=== PATIENT | male | born 1955 | race Caucasian/White ===

== ENCOUNTER 2018-10-22 15:50 | Observation (INO) ==
--- NOTE | 2018-10-22 16:15 | XRay Report ---
SINGLE VIEW CHEST CLINICAL HISTORY: Atypical chest pain. FINDINGS: An AP, portable, upright chest radiograph is obtained. No prior studies are available for c omparison at the time of dictation. The examination is degraded by portable technique, apical lordoti c positioning, and patient rotation. The heart is enlarged. The pulmonary vasculature is noncongeste d. There is mild bibasilar scarring/atelectasis. The lungs and pleural spaces are otherwise clear. No pneumothorax is seen. The skeletal structures are osteopenic. The bony thorax is grossly intact. Deg enerative change is noted throughout the thoracic spine. IMPRESSION: Cardiomegaly with no acute cardiopulmonary abnormality. Electronically signed by: Checo Zavala M.D. 10/22/2018 4:13 PM
[2018-10-22 16:37] LABS: Basophils # (auto) 0.03 K/uL (0-0.2); Basophils % (auto) 0.6 %; Eosinophils % (auto) 1.9 %; Hematocrit (blood only) 38.3 % (42-52); Hemoglobin 13.6 g/dL (14.0-18.0); Immature Granulocytes # (auto) 0.01 K/uL (0.00-0.02); Immature Granulocytes % (auto) 0.2 %; Lymphocytes # (auto) 1.27 K/uL (1.2-3.4); Lymphocytes % (auto) 24.5 %; Mean Corpuscular Hgb Conc 35.5 g/dL (32-36); Mean Corpuscular Volume 90.5 fL (80-100); Mean Platelet Volume 10.1 fL (7.4-10.4); Monocytes # (auto) 0.53 K/uL (0.11-0.59); Monocytes % (auto) 10.2 %; Neutrophils # (auto) 3.24 K/uL (1.4-6.5); Neutrophils % (auto) 62.6 %; Platelet Count 207 K/uL (130-400); RDW Coefficient of Variation 12.4 % (11.5-14.5); RDW Standard Deviation 41.3 fL (36.4-46.3); Red Blood Count 4.23 M/uL (4.7-6.1); White Blood Count 5.18 K/uL (4.8-10.8)
[2018-10-22 16:58] LABS: Albumin Level 3.6 gm/dl (3.4-5.0); BUN Creatinine Ratio 18.8 (10-20); Calcium 9.5 mg/dl (8.5-10.1); Creatinine Clr Calc Pharmacy 52.1 ml/min; Est GFR (African American) 57.7; Est GFR (Non-African American) 49.8; Magnesium 2.3 mg/dl (1.8-2.4); Potassium 3.8 mmol/L (3.5-5.1)
[2018-10-22 17:12] LABS: Albumin Globulin Ratio 1.2 (0.9-2); Bilirubin,Total 0.3 mg/dl (0.2-1); Globulin 3.1 gm/dl (2.5-4.0); Phosphorus 3.3 mg/dl (2.5-4.9); Total Protein 6.7 gm/dl (6.4-8.2); Troponin I 0.127 ng/ml (0-0.045)
[2018-10-22] MEDS ORDERED: SODIUM CHLORIDE 0.9% 500 ML IV ONE (17:28)
[2018-10-22 17:31] LABS: Appearance Urine Clear (Clear); Bilirubin Urine Negative (Negative); Blood Urine Negative (Negative); Color Urine Dark Yellow; Glucose Urine UA Negative (Negative); Ketones Urine Trace (Negative); Leukocyte Esterase Urine Negative (Negative); Nitrite Urine Negative (Negative); Protein Urine Negative (Negative); Specific Gravity Urine 1.026 (1.000-1.030); Urobilinogen Urine Negative (Negative); pH Urine 5.5 (4.5-7.5)
--- NOTE | 2018-10-22 17:31 | Emergency Department Note ---
Entered by Hannah Ovalle acting as a scribe for Siva Hernandez MD History of Present Illness General Chief complaint: Hypertension Stated complaint: ELEVATED BP 220/ Time Seen by Provider: 10/22/18 15:57 Source: patient Limitations: no limitations History of Present Illness Provider complaint: Hypertension Onset (ago): unknown Location: left and right Associated symptoms: + denies other symptoms (-congestion, -diarrhea, -urinary symptoms); no chest pain, no cough, no fever/chills, no nausea/vomiting and no shortness of breath The patient is a 63 year old male who presents to the Emergency Room with complaints of hypertension. The patient states that he was at his provider prior to arrival for a regular check-up for his nocturnal seizure disorder and states that his physician felt the patient needed to come to the ED for his high blood pressure. The patient denies having any recent seizure episodes and states that he takes lamotrigine for his seizure disorder. The patient denies a history of hypertension and states that he does not take blood pressure medication. The patient states that his blood pressure usually runs in the 140's. The patient states that he feels fine. The patient denies any chest pain, shortness of breath, nausea, vomiting, cough, congestion, urinary problems, or diarrhea. The patient denies any chest pain or shortness of breath with exertion. The patient states that the physician he saw wanted the patient to get a complete metabolic panel and blood count. 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 and A total of 10 systems reviewed and were otherwise negative Physical Exam Vital Signs Vital Signs - 24 hr 10/22/18 15:54 10/22/18 16:07 10/22/18 16:22 Temperature 36.8 C Temperature Source Oral Sepsis Recent Fever Within 48 Hours No Sepsis New/Unexplained Change in Mental Status No Sepsis Action Taken by Nursing No Action Required Pulse Rate 76 71 70 Pulse Rate from SpO2 Sensor 70 Pulse Rhythm Regular Pulse Strength Normal Respiratory Rate 18 21 15 Respiratory Effort / Characteristics Non-Labored Spontaneous Respiratory Depth Normal Respiratory Pattern Regular Blood Pressure 253/102 H 226/91 H Blood Pressure Mean 152 136 Blood Pressure Position Sitting Pulse Oximetry 96 94 Oxygen Delivery Method Room Air 10/22/18 16:30 10/22/18 16:31 10/22/18 16:32 Temperature Temperature Source Sepsis Recent Fever Within 48 Hours Sepsis New/Unexplained Change in Mental Status Sepsis Action Taken by Nursing Pulse Rate 68 69 68 Pulse Rate from SpO2 Sensor 68 69 68 Pulse Rhythm Pulse Strength Respiratory Rate 17 14 19 Respiratory Effort / Characteristics Respiratory Depth Respiratory Pattern Blood Pressure 211/91 H Blood Pressure Mean 131 Blood Pressure Position Pulse Oximetry 94 95 Oxygen Delivery Method 10/22/18 16:44 10/22/18 16:46 10/22/18 17:00 Temperature Temperature Source Sepsis Recent Fever Within 48 Hours Sepsis New/Unexplained Change in Mental Status Sepsis Action Taken by Nursing Pulse Rate 68 67 Pulse Rate from SpO2 Sensor 69 68 Pulse Rhythm Pulse Strength Respiratory Rate 12 14 Respiratory Effort / Characteristics Respiratory Depth Respiratory Pattern Blood Pressure 205/101 H 215/94 H Blood Pressure Mean 135 134 Blood Pressure Position Pulse Oximetry 96 93 95 Oxygen Delivery Method Room Air 10/22/18 17:18 10/22/18 17:30 10/22/18 17:31 Temperature Temperature Source Sepsis Recent Fever Within 48 Hours Sepsis New/Unexplained Change in Mental Status Sepsis Action Taken by Nursing Pulse Rate 73 71 70 Pulse Rate from SpO2 Sensor Pulse Rhythm Pulse Strength Respiratory Rate 23 15 10 L Respiratory Effort / Characteristics Respiratory Depth Respiratory Pattern Blood Pressure 232/100 H 220/100 H Blood Pressure Mean 144 140 Blood Pressure Position Pulse Oximetry Oxygen Delivery Method 10/22/18 17:32 10/22/18 17:46 10/22/18 18:00 Temperature Temperature Source Sepsis Recent Fever Within 48 Hours Sepsis New/Unexplained Change in Mental Status Sepsis Action Taken by Nursing Pulse Rate 70 68 68 Pulse Rate from SpO2 Sensor Pulse Rhythm Pulse Strength Respiratory Rate 19 16 17 Respiratory Effort / Characteristics Respiratory Depth Respiratory Pattern Blood Pressure 218/97 H Blood Pressure Mean 137 Blood Pressure Position Pulse Oximetry Oxygen Delivery Method 10/22/18 18:01 10/22/18 18:16 10/22/18 18:17 Temperature Temperature Source Sepsis Recent Fever Within 48 Hours Sepsis New/Unexplained Change in Mental Status Sepsis Action Taken by Nursing Pulse Rate 70 67 66 Pulse Rate from SpO2 Sensor Pulse Rhythm Pulse Strength Respiratory Rate 17 12 14 Respiratory Effort / Characteristics Respiratory Depth Respiratory Pattern Blood Pressure 219/109 H 228/100 H Blood Pressure Mean 145 142 Blood Pressure Position Pulse Oximetry Oxygen Delivery Method 10/22/18 18:31 10/22/18 18:32 Temperature Temperature Source Sepsis Recent Fever Within 48 Hours Sepsis New/Unexplained Change in Mental Status Sepsis Action Taken by Nursing Pulse Rate 63 64 Pulse Rate from SpO2 Sensor Pulse Rhythm Pulse Strength Respiratory Rate 11 L 12 Respiratory Effort / Characteristics Respiratory Depth Respiratory Pattern Blood Pressure 225/106 H Blood Pressure Mean 145 Blood Pressure Position Pulse Oximetry Oxygen Delivery Method GENERAL: Awake, alert, well appearing, no distress. HENT: Normocephalic, atraumatic. TM's normal. Mucous membranes are dry. EYES: PERRL. EOMI. Normal conjunctiva. Sclera non-icteric. NECK: Supple. No nuchal rigidity. FROM. No JVD or bruit. RESPIRATORY: CTAB CARDIAC: RRR. No murmur. ABDOMEN: Soft, non distended. No tenderness to palpation. No rebound or guarding. No masses. RECTAL: Deferred. MUSCULOSKELETAL: Unremarkable. No edema. No discoloration. Gross motor s trength symmetric. NEURO: Normal sensorium. No sensory or motor deficits noted. Intact [id number]. 5/5 strength and SILT x4 extremities. SKIN: No rash or jaundice noted. LYMPH: No adenopathy. Course 1559: The patient was evaluated in room A10, and a complete history and physical examination were performed. 1728: I checked on the patient. The patient was updated on their imaging and lab results. The patient states that he still has no symptoms. 1735: I discussed the patient's case with JENNIFER Owenist who states that she will evaluate the patient for further hospitalization. Consultations Consultation #1: JENNIFER Owen Hospitalist Time: 17:35 Administered Medications Amlodipine Besylate (Norvasc) 5 mg PO QAM [facility] Stop: 11/21/18 19:48 Last Admin: 10/22/18 20:26 Dose: 5 mg Documented by: [id number] Aspirin (Ecotrin Ectab) 81 mg PO QAM [facility] Stop: 11/21/18 19:48 Last Admin: 10/22/18 20:25 Dose: 81 mg Documented by: [id number] Heparin Sodium (Porcine) (Heparin Sodium (Porcine)) 5,000 units SQ Q8 [facility] Stop: 11/21/18 21:59 Last Admin: 10/22/18 22:47 Dose: 5,000 units Documented by: [id number] Cosigned by: [id number] Sodium Chloride (Nss 1000ml) 1,000 mls @ 100 mls/hr IV .Q10H AMY Stop: 11/21/18 19:48 Last Admin: 10/22/18 20:29 Dose: 100 mls/hr Documented by: [id number] Insulin Aspart (Novolog Flexpen) 0 units SC ACHS [facility] Stop: 11/21/18 20:59 Last Admin: 10/22/18 21:15 Dose: Not Given Documented by: [id number] Cosigned by: [id number] Labetalol HCl (Normodyne) 10 mg IV Q4H PRN PRN Reason: Hypertension (SBP > 180) Stop: 11/21/18 22:11 Last Admin: 10/22/18 22:48 Dose: 10 mg Documented by: [id number] Cosigned by: [id number] Lamotrigine (Lamictal) 150 mg PO BID [facility] Stop: 11/21/18 20:59 Last Admin: 10/22/18 20:26 Dose: 150 mg Documented by: [id number] Metoprolol Tartrate (Lopressor) 12.5 mg PO BID [facility] Stop: 11/21/18 20:59 Last Admin: 10/22/18 21:18 Dose: 12.5 mg Documented by: [id number] Discontinued Medications Sodium Chloride (Nss) 500 mls @ 999 mls/hr IV .Q31M ONE Stop: 10/22/18 17:58 Last Infusion: 10/22/18 18:04 Dose: 0 mls/hr Documented by: [id number] Admin: 10/22/18 17:31 Dose: 999 mls/hr Documented by: [id number] Lisinopril (Zestril) 5 mg PO NOW ONE Stop: 10/22/18 20:16 Last Admin: 10/22/18 20:26 Dose: 5 mg Documented by: [id number] Metoprolol Tartrate (Lopressor) 5 mg IV NOW STA Stop: 10/22/18 19:50 Last Admin: 10/22/18 20:32 Dose: 5 mg Documented by: [id number] Medical Decision Making Differential Diagnosis Differential diagnosis: Etiologies such as benign hypertension, hypertensive emergency, cardiovascular pathology, intracranial process, toxic ingestion, withdrawal syndrome, electrolyte abnormality, renal disease, end organ damage, as well as others were entertained. Medical Records Attestation: I reviewed the patient's medical records. Home Medications Current Medication List: was personally reviewed by me Laboratory Data Attestation: I reviewed the patient's lab results. Result diagrams: 10/22/18 16:22 10/22/18 16:22 Lab Results 10/22/18 10/22/18 10/22/18 Range/Units 16:22 16:22 16:23 WBC 5.18 (4.8-10.8) K/uL RBC 4.23 L (4.7-6.1) M/uL Hgb 13.6 L (14.0-18.0) g/dL Hct 38.3 L (42-52) % MCV 90.5 (80-100) fL MCH 32.2 (25-34) pg MCHC 35.5 (32-36) g/dL RDW Std Deviation 41.3 (36.4-46.3) fL RDW Coeff of Lul[place] 12.4 (11.5-14.5) % Plt Count 207 (130-400) K/uL MPV 10.1 (7.4-10.4) fL Immature Gran % (Auto) 0.2 % Neut % (Auto) 62.6 % Lymph % (Auto) 24.5 % [place] % (Auto) 10.2 % Eos % (Auto) 1.9 % Baso % (Auto) 0.6 % Immature Gran # (Auto) 0.01 (0.00-0.02) K/uL Neut # (Auto) 3.24 (1.4-6.5) K/uL Lymph # (Auto) 1.27 (1.2-3.4) K/uL [place] # (Auto) 0.53 (0.11-0.59) K/uL Eos # (Auto) 0.10 (0-0.5) K/uL Baso # (Auto) 0.03 (0-0.2) K/uL PT (9.0-12.0) Seconds INR (0.9-1.1) Sodium 145 (136-145) mmol/L Potassium 3.8 (3.5-5.1) mmol/L Chloride 110 H (98-107) mmol/L Carbon Dioxide 27 (21-32) mmol/L Anion Gap 8.0 (3-11) BUN 27 H (7-18) mg/dl Creatinine 1.46 H (0.6-1.4) mg/dl Est Cr Clr Drug Dosing 52.1 ml/min Est GFR ( Amer) 57.7 Est GFR (Non-Af Amer) 49.8 BUN/Creatinine Ratio 18.8 (10-20) Glucose 229 H (70-99) mg/dl Calcium 9.5 (8.5-10.1) mg/dl Phosphorus 3.3 (2.5-4.9) mg/dl Magnesium 2.3 (1.8-2.4) mg/dl Total Bilirubin 0.3 (0.2-1) mg/dl AST 27 (15-37) U/L ALT 39 (12-78) U/L Alkaline Phosphatase 78 (45-117) U/L Troponin I 0.127 H* (0-0.045) ng/ml Total Protein 6.7 (6.4-8.2) gm/dl Albumin 3.6 (3.4-5.0) gm/dl Globulin 3.1 (2.5-4.0) gm/dl Albumin/Globulin Ratio 1.2 (0.9-2) Lipase 90 (73-393) U/L TSH 0.507 (0.300-4.500) uIu/ml Random Cortisol 12.87 mcg/dl Specimen Hemolysis Urine Color Urine Appearance (Clear) Urine pH (4.5-7.5) Ur Specific [place] (1.000-1.030) Urine Protein (Negative) Urine Glucose (UA) (Negative) Urine Ketones (Negative) Urine Blood (Negative) Urine Nitrite (Negative) Urine Bilirubin (Negative) Urine Urobilinogen (Negative) Ur Leukocyte Esterase (Negative) 10/22/18 10/22/18 Range/Units 16:23 17:10 WBC (4.8-10.8) K/uL RBC (4.7-6.1) M/uL Hgb (14.0-18.0) g/dL Hct (42-52) % MCV (80-100) fL MCH (25-34) pg MCHC (32-36) g/dL RDW Std Deviation (36.4-46.3) fL RDW Coeff of Lulú (11.5-14.5) % Plt Count (130-400) K/uL MPV (7.4-10.4) fL Immature Gran % (Auto) % Neut % (Auto) % Lymph % (Auto) % [place] % (Auto) % Eos % (Auto) % Baso % (Auto) % Immature Gran # (Auto) (0.00-0.02) K/uL Neut # (Auto) (1.4-6.5) K/uL Lymph # (Auto) (1.2-3.4) K/uL [place] # (Auto) (0.11-0.59) K/uL Eos # (Auto) (0-0.5) K/uL Baso # (Auto) (0-0.2) K/uL PT 10.4 (9.0-12.0) Seconds INR 1.0 (0.9-1.1) Sodium (136-145) mmol/L Potassium (3.5-5.1) mmol/L Chloride (98-107) mmol/L Carbon Dioxide (21-32) mmol/L Anion Gap (3-11) BUN (7-18) mg/dl Creatinine (0.6-1.4) mg/dl Est Cr Clr Drug Dosing ml/min Est GFR ( Amer) Est GFR (Non-Af Amer) BUN/Creatinine Ratio (10-20) Glucose (70-99) mg/dl Calcium (8.5-10.1) mg/dl Phosphorus (2.5-4.9) mg/dl Magnesium (1.8-2.4) mg/dl Total Bilirubin (0.2-1) mg/dl AST (15-37) U/L ALT (12-78) U/L Alkaline Phosphatase (45-117) U/L Troponin I (0-0.045) ng/ml Total Protein (6.4-8.2) gm/dl Albumin (3.4-5.0) gm/dl Globulin (2.5-4.0) gm/dl Albumin/Globulin Ratio (0.9-2) Lipase (73-393) U/L TSH (0.300-4.500) uIu/ml Random Cortisol mcg/dl Specimen Hemolysis Urine Color Dark Yellow Urine Appearance Clear (Clear) Urine pH 5.5 (4.5-7.5) Ur Specific [place] 1.026 (1.000-1.030) Urine Protein Negative (Negative) Urine Glucose (UA) Negative (Negative) Urine Ketones Trace H (Negative) Urine Blood Negative (Negative) Urine Nitrite Negative (Negative) Urine Bilirubin Negative (Negative) Urine Urobilinogen Negative (Negative) Ur Leukocyte Esterase Negative (Negative) Imaging Data Radiologist's Impression: Radiology results as stated below per my review and the radiologist's interpretation: SINGLE VIEW CHEST CLINICAL HISTORY: Atypical chest pain. FINDINGS: An AP, portable, upright chest radiograph is obtained. No prior studies are available for comparison at the time of dictation. The examination is degraded by portable technique, apical lordotic positioning, and patient rotation. The heart is enlarged. The pulmonary vasculature is noncongested. There is mild bibasilar scarring/atelectasis. The lungs and pleural spaces are otherwise clear. No pneumothorax is seen. The skeletal structures are osteopenic. The bony thorax is grossly intact. Degenerative change is noted throughout the thoracic spine. IMPRESSION: Cardiomegaly with no acute cardiopulmonary abnormality. Electronically signed by: Checo Zavala M.D. 10/22/2018 4:13 PM ECG Data Attestation: I personally reviewed and interpreted this ECG as follows: Indication: other (+Hypertension) Rate (beats per minute): 76 Rhythm: sinus rhythm Findings: + other (+LVH, +QRS widening ) and + T-wave inversion (+Inferior, +Lateral) Blood Pressure Blood Pressure Findings: Elevated blood pressure Blood Pressure Disposition: further management by hospitalist MDM Narrative The patient is a pleasant 63-year-old gentleman with a past medical history of seizure disorder on Lamictal who presents emergency department for evaluation of asymptomatic hypertension after he was at his annual he scheduled neurology visit and was found to be profoundly hypertensive per hpi. On arrival patient is well-appearing in no acute distress, afebrile with blood pressure initially 250/110s vital signs otherwise stable. She denied any current symptoms or any symptoms otherwise including denying any dyspnea or chest pain on exertion. Additionally denies any episodes in the past several months where he experienced any chest pain, nausea or vomiting. EKG demonstrates LVH with QRS widening as well as T wave inversions inferior and laterally, with no prior EKGs for comparison. Chest x-ray demonstrates cardiomegaly but without acute process otherwise. WBC and platelets within normal limits. H/H 13.6/38.3 without prior values for comparison. Glucose 200s and chemistry without acidosis. Creatinine is 1.46 approximately prior value in the [facility] system where he was 1.3 on 01/21/2015. Troponin is 0.127 without prior values for comparison. Given the patient denies any current or prior symptoms troponin elevation less likely to be related to ACS and most likely related to prolonged malignant hypertension. Thus reasonable to admit the patient for further cardiac evaluation and further blood pressure control. Blood pressure initially improved to 200s/90s fluid hydration alone. Will provide additional hydration and reassess. Case was discussed with Ruby Champion, [facility] PAC, who evaluate the patient for admission. Impression & Plan Hypertensive urgency, Elevated troponin Discharge Plan Visit Data *Final* Discharge Date/Time: 10/22/18 19:25 Chief Complaint: Hypertension Stated Complaint: ELEVATED BP 220/ ED Provider: Siva Hernandez Discharge Problem: Hypertensive urgency, Elevated troponin Patient Disposition: Admitted As Inpatient Discharge Instructions Interventions: ED Discharge Assessment Last Done: 10/22/18 19:25 The scribe's documentation has been prepared under my direction and personally reviewed by me in its entirety. I confirm that the note above accurately reflects all work, treatment, procedures, and medical decision making performed by me.
--- NOTE | 2018-10-22 18:50 | History & Physical Report ---
Date of Service October 22, 2018 Assessment & Plan (1) Hypertensive urgency: (2) Elevated troponin: (3) New onset type 2 diabetes mellitus: (4) CKD (chronic kidney disease): (5) Seizure: Cardiology, Renal, and Neuro evals, IVFs, Renal US, TSH, T4, Cortisol level, SSI, adult educator, Lamictal level, Fran, EKG, MARIANA-I, BBlocker, Norvasc, Observation ROS-No Headache, No Visual Changes, No Nausea, No Vomiting, No Fever, No Chills, No Neck Pain or Stiffness, No Chest Pain, No Palpitations, No SOB, No NICHOLS, No Cough, No Sputum, No Wheezing, No Abdominal Pain, No Diarrhea, No Hematemesis, No Hemoptysis, No Unexpected Weight Loss, No Flank pain, No Melena, No Hem atochezia, No Frequency, No Urgency, No Burning, No Hematuria, No Rashes, No Diaphoresis. Appetite is Normal Physical Exam Gen-AAO x 3, NAD, Afebrile Head-NCAT, EOMI, PERRLA, Anicteric Sclera, No Posterior Pharyngeal Erythema Neck-Supple, No JVD, No Thyromegaly, No Masses, No LAD, No Bruits Lungs-Clear to Auscultation Bilaterally, No Rales, No Rhonchi, No Wheezing, No Crepitus Chest-No S4, +S1, +S2, No S3, No Murmurs, No Rubs, No Gallops, No Ectopy Abdomen-Soft, Bowel Sounds Present, Non Tender, Non Distended, No Hepatomegaly, No Splenomegaly, No Palpable Masses, No Rebound, No Rigidity, No Guarding Musculoskeletal-Full Range of Motion Bilaterally, No CVAT Extremities-No Cyanosis, No Clubbing, No Edema Nuero-Cranial Nerves II-XII grossly intact, Motor WNL, DTRs WNL, Strength WNL, Non Focal Psych-Normal Mood History of Present Illness Patient sent over by Neurology sec to BP of 253/102 and here in ER 218/97. He has zero symptoms and was seeing Dr Clarke for seizure follow up. 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 FH-Mother of COPD, F AMI, Siblings and children all Healthy Primary Care Provider: NO PCP Allergies Allergy/AdvReac Type Severity Reaction Status Date / Time No Known Allergies Allergy Unverified 10/22/18 15:54 Home Medications Home Medications Medication Instructions Recorded Confirmed Type lamotrigine 150 mg PO BID 10/22/18 10/22/18 History multivitamin 1 tab PO DAILY 10/22/18 10/22/18 History Past Med/Surg History Medical History No significant active problems No significant family history No significant past surgical history Nocturnal seizures Social History Preferred Language: [place] Feels Safe at Home: Yes Smoking Status: Never smoker Results & Data Vital Signs (Past 12 Hours) Vital Signs Temp Pulse Resp BP Pulse Ox 10/22/18 18:31 63 11 L 225/106 H 10/22/18 18:17 66 14 10/22/18 18:16 67 12 228/100 H 10/22/18 18:01 70 17 219/109 H 10/22/18 18:00 68 17 10/22/18 17:46 68 16 218/97 H 10/22/18 17:32 70 19 10/22/18 17:31 70 10 L 220/100 H 10/22/18 17:30 71 15 10/22/18 17:18 73 23 232/100 H 10/22/18 17:00 67 14 215/94 H 95 10/22/18 16:46 68 12 205/101 H 93 10/22/18 16:44 96 10/22/18 16:32 68 19 95 10/22/18 16:31 69 14 211/91 H 10/22/18 16:30 68 17 94 10/22/18 16:22 70 15 226/91 H 94 10/22/18 16:07 71 21 10/22/18 15:54 36.8 C 76 18 253/102 H 96 Allergies No Known Allergies Allergy (Unverified 10/22/18 15:54) Height/Weight/Isolation Height 5 ft 10 in Weight 84.6 kg CBC 10/22/18 10/22/18 10/22/18 16:22 16:22 17:10 WBC 5.18 RBC 4.23 L Hgb 13.6 L Hct 38.3 L MCV 90.5 MCH 32.2 MCHC 35.5 RDW Std Deviation 41.3 RDW Coeff of Lulú 12.4 Plt Count 207 MPV 10.1 Immature Gran % (Auto) 0.2 Neut % (Auto) 62.6 Lymph % (Auto) 24.5 [place] % (Auto) 10.2 Eos % (Auto) 1.9 Baso % (Auto) 0.6 Immature Gran # (Auto) 0.01 Neut # (Auto) 3.24 Lymph # (Auto) 1.27 [place] # (Auto) 0.53 Eos # (Auto) 0.10 Baso # (Auto) 0.03 Sodium 145 Potassium 3.8 Chloride 110 H Carbon Dioxide 27 Anion Gap 8.0 BUN 27 H Creatinine 1.46 H Est Cr Clr Drug Dosing 52.1 Est GFR ( Amer) 57.7 Est GFR (Non-Af Amer) 49.8 BUN/Creatinine Ratio 18.8 Glucose 229 H Calcium 9.5 Phosphorus 3.3 Magnesium 2.3 Total Bilirubin 0.3 AST 27 ALT 39 Alkaline Phosphatase 78 Troponin I 0.127 H* Total Protein 6.7 Albumin 3.6 Globulin 3.1 Albumin/Globulin Ratio 1.2 Lipase 90 TSH 0.507 Specimen Hemolysis Urine Color Dark Yellow Urine Appearance Clear Urine pH 5.5 Ur Specific [place] 1.026 Urine Protein Negative Urine Glucose (UA) Negative Urine Ketones Trace H Urine Blood Negative Urine Nitrite Negative Urine Bilirubin Negative Urine Urobilinogen Negative Ur Leukocyte Esterase Negative Chemistry 10/22/18 16:22 Sodium 145 Potassium 3.8 Chloride 110 H Carbon Dioxide 27 Anion Gap 8.0 BUN 27 H Creatinine 1.46 H Glucose 229 H Urinalysis 10/22/18 17:10 Urine Color Dark Yellow Urine Appearance Clear Urine pH 5.5 Ur Specific [place] 1.026 Urine Protein Negative Urine Glucose (UA) Negative Urine Ketones Trace H Urine Blood Negative Urine Nitrite Negative Urine Bilirubin Negative Code Status & VTE Plan Code Status Full
[2018-10-22] MEDS ORDERED: AMLODIPINE BESYLATE 5 MG TAB PO SCH (19:49)
[2018-10-22] MEDS ORDERED: GLUCOSE 40% GEL 15 GM TUBE PO PRN (19:49)
[2018-10-22] MEDS ORDERED: DEXTROSE 50% 50 ML SYRINGE IV PRN (19:49)
[2018-10-22] MEDS ORDERED: GLUCAGON FOR INJ 1 MG VIAL SQ PRN (19:49)
[2018-10-22] MEDS ORDERED: CARBOHYDRATES FOR HYPOGLYCEMIA PO PRN (19:49)
[2018-10-22] MEDS ORDERED: ALUMINUM/MAGNESIUM SUSP 30 ML UDC PO PRN (19:49)
[2018-10-22] MEDS ORDERED: ACETAMINOPHEN 325 MG TAB PO PRN (19:49)
[2018-10-22] MEDS ORDERED: METOPROLOL TARTRATE 1 MG/ML VIAL IV STA (19:49)
[2018-10-22] MEDS ORDERED: GLUCOSE 10 TABS/TUBE PO PRN (19:49)
[2018-10-22] MEDS ORDERED: POLYETHYLENE (MIRALAX) 17 GM PACK PO PRN (19:49)
[2018-10-22] MEDS ORDERED: PHARMACY GLYCEMIC MGMT CONSULT PRN (20:05)
[2018-10-22] MEDS ORDERED: LISINOPRIL 5 MG TAB PO ONE (20:15)
[2018-10-22] MEDS: ASPIRIN 81 MG ECTAB PO SCH (20:25)
[2018-10-22] MEDS: lamoTRIgine 100 MG TAB PO SCH (20:26)
[2018-10-22] MEDS: SODIUM CHLORIDE 0.9% 1000ML 1,000 ML IV SCH (20:29)
[2018-10-22] MEDS ORDERED: METOPROLOL TARTRATE 25 MG TAB PO SCH (21:00)
[2018-10-22] MEDS: INSULIN ASPART 100 UNITS/ML 3 ML PEN SC SCH (21:15)
[2018-10-22 21:25] LABS: Prothrombin Time 10.4 Seconds (9.0-12.0)
[2018-10-22] MEDS: HEPARIN SOD 5,000 UNIT/0.5 ML VIAL SQ SCH (22:47)
[2018-10-22] MEDS: LABETALOL HCL IV 5 MG/ML 20ML IV PRN (22:48)
[2018-10-23] MEDS ORDERED: INSULIN ASPART 100 UNITS/ML 3 ML PEN SC SCH
[2018-10-23] MEDS: NITROGLYCERIN 2% OINTMENT 30GM TUBE EXT SCH ×2 (00:25→06:14)
[2018-10-23] MEDS ORDERED: HydrALAZINE HCL 20 MG/ML VIAL IV ONE (01:39)
[2018-10-23] MEDS: SODIUM CHLORIDE 0.9% 1000ML 1,000 ML IV SCH ×2 (06:13→13:18)
[2018-10-23] MEDS: HEPARIN SOD 5,000 UNIT/0.5 ML VIAL SQ SCH ×2 (06:16→13:18)
[2018-10-23] MEDS: LABETALOL HCL IV 5 MG/ML 20ML IV PRN (06:16)
--- NOTE | 2018-10-23 06:58 | Hospitalist Progress Note ---
Date of Service October 23, 2018 Assessment & Plan (1) Hypertensive urgency: (2) Elevated troponin: (3) New onset type 2 diabetes mellitus: (4) CKD (chronic kidney disease): (5) Seizure: Cardiology, Renal, and Neuro evals, IVFs, Renal US, TSH is normal, T4, Cortisol level normal, SSI, in service educator, Lamictal level, Fran, EKG, HCTZ added to Lisinopril (), BBlocker increased, Norvasc increased, Still Observation, Patient didn't get this BP overnight, will be happy c a SBP 150-160 for now, DC later today and f/u c Renal, Neuro, Cards Labs reviewed, US neg for ROLO ROS-No Headache, No Visual Changes, No Nausea, No Vomiting, No Fever, No Chills, No Neck Pain or Stiffness, No Chest Pain, No Palpitations, No SOB, No NICHOLS, No Cough, No Sputum, No Wheezing, No Abdominal Pain, No Diarrhea, No Hematemesis, No Hemoptysis, No Unexpected Weight Loss, No Flank pain, No Melena, No Hematochezia, No Frequency, No Urgency, No Burning, No Hematuria, No Rashes, No Diaphoresis. Appetite is Normal Physical Exam Gen-AAO x 3, NAD, Afebrile Head-NCAT, EOMI, PERRLA, Anicteric Sclera, No Posterior Pharyngeal Erythema Neck-Supple, No JVD, No Thyromegaly, No Masses, No LAD, No Bruits Lungs-Clear to Auscultation Bilaterally, No Rales, No Rhonchi, No Wheezing, No Crepitus Chest-No S4, +S1, +S2, No S3, No Murmurs, No Rubs, No Gallops, No Ectopy Abdomen-Soft, Bowel Sounds Present, Non Tender, Non Distended, No Hepatomegaly, No Splenomegaly, No Palpable Masses, No Rebound, No Rigidity, No Guarding Musculoskeletal-Full Range of Motion Bilaterally, No CVAT Extremities-No Cyanosis, No Clubbing, No Edema Nuero-Cranial Nerves II-XII grossly intact, Motor WNL, DTRs WNL, Strength WNL, Non Focal Psych-Normal Mood Results & Data Vital Signs (Past 12 Hours) Vital Signs Temp Pulse Pulse Resp BP BP BP 10/23/18 06:24 60 182/97 H 10/23/18 03:14 36.5 C 58 L 18 162/93 H 10/23/18 01:32 206/108 H 10/22/18 23:43 36.7 C 61 17 216/110 H 10/22/18 22:10 64 213/110 H 10/22/18 21:16 219/112 H 10/22/18 20:32 65 10/22/18 19:53 36.5 C 67 19 237/108 H 10/22/18 19:16 65 12 229/107 H 10/22/18 19:01 65 12 235/110 H 10/22/18 19:00 64 15 Pulse Ox 10/23/18 06:24 10/23/18 03:14 97 10/23/18 01:32 10/22/18 23:43 97 10/22/18 22:10 10/22/18 21:16 10/22/18 20:32 10/22/18 19:53 97 10/22/18 19:16 10/22/18 19:01 10/22/18 19:00
[2018-10-23 07:14] LABS: Hematocrit (blood only) 37.2 % (42-52); Hemoglobin 12.7 g/dL (14.0-18.0); Mean Corpuscular Hgb Conc 34.1 g/dL (32-36); Mean Corpuscular Volume 90.3 fL (80-100); Mean Platelet Volume 10.3 fL (7.4-10.4); Platelet Count 187 K/uL (130-400); RDW Coefficient of Variation 12.3 % (11.5-14.5); RDW Standard Deviation 40.6 fL (36.4-46.3); Red Blood Count 4.12 M/uL (4.7-6.1); White Blood Count 6.19 K/uL (4.8-10.8)
[2018-10-23] MEDS ORDERED: AMLODIPINE BESYLATE 5 MG TAB PO SCH ×2 (07:15→07:30)
[2018-10-23] MEDS ORDERED: METOPROLOL TARTRATE 25 MG TAB PO SCH (07:30)
[2018-10-23 07:35] LABS: Estimated Average Glucose 128 mg/dl; Hemoglobin A1C 6.1 % (4.5-5.6)
[2018-10-23 07:44] LABS: BUN Creatinine Ratio 18.5 (10-20); Calcium 8.8 mg/dl (8.5-10.1); Creatinine Clr Calc Pharmacy 72.4 ml/min; Est GFR (African American) 85.9; Est GFR (Non-African American) 74.1; Potassium 3.7 mmol/L (3.5-5.1)
[2018-10-23 07:52] LABS: Troponin I 0.129 ng/ml (0-0.045)
--- NOTE | 2018-10-23 08:47 | Ultrasound Report ---
US duplex renal artery CLINICAL HISTORY: LIDA v CKD COMPARISON STUDY: No previous studies for comparison. TECHNIQUE: Color and duplex Doppler sonography of the abdominal aorta and bilateral renal arteries wa s performed. FINDINGS: Peak systolic velocity within the abdominal aorta was 118 cm/s. The bilateral renal arterie s and veins are patent. The peak systolic velocity within the right renal artery was 85 cm/s. The pea k systolic velocity within the left renal artery was 78 cm/s. Segmental waveforms within the bilatera l kidneys were within normal limits. There is no hydronephrosis. IMPRESSION: No sonographic evidence of renal artery stenosis. Electronically signed by: Skip Newton M.D. 10/23/2018 8:45 AM
[2018-10-23] MEDS ORDERED: ISOSORBIDE MONO EXTENDED REL 30 MG TABCR PO SCH (09:00)
[2018-10-23] MEDS ORDERED: MULTIVITAMIN TAB PO SCH (09:00)
[2018-10-23] MEDS ORDERED: LISINOPRIL/HCTZ 10/12.5MG TAB PO SCH (09:00)
[2018-10-23 09:17] VITALS: TEMP 97.5
[2018-10-23] MEDS: INSULIN ASPART 100 UNITS/ML 3 ML PEN SC SCH ×2 (09:18→13:17)
[2018-10-23] MEDS: lamoTRIgine 100 MG TAB PO SCH (09:19)
[2018-10-23] MEDS: ASPIRIN 81 MG ECTAB PO SCH (09:19)
[2018-10-23] MEDS ORDERED: LISINOPRIL 10 MG TAB PO ONE (09:30)
[2018-10-23] MEDS ORDERED: hydroCHLOROthiazide 25 MG TAB PO ONE (09:30)
--- NOTE | 2018-10-23 11:11 | Discharge Summary ---
Date of Service October 23, 2018 Admission HPI Per Admitting Provider Patient sent over by Neurology sec to BP of 253/102 and here in ER 218/97. He has zero symptoms and was seeing Dr Clarke for seizure follow up. He had hyperglycemia, AIC 6.1. He was started on Lisinopril/HCTZ 10/12.5, Lopressor 25 BID, Norvasc 10 and he will f/u c renal, cards and PCP. Admission Exam Per Admitting Provider ROS-No Headache, No Visual Changes, No Nausea, No Vomiting, No Fever, No Chills, No Neck Pain or Stiffness, No Chest Pain, No Palpitations, No SOB, No NICHOLS, No Cough, No Sputum, No Wheezing, No Abdominal Pain, No Diarrhea, No Hematemesis, No Hemoptysis, No Unexpected Weight Loss, No Flank pain, No Melena, No Hematochezia, No Frequency, No Urgency, No Burning, No Hematuria, No Rashes, No Diaphoresis. Appetite is Normal Physical Exam Gen-AAO x 3, NAD, Afebrile Head-NCAT, EOMI, PERRLA, Anicteric Sclera, No Posterior Pharyngeal Erythema Neck-Supple, No JVD, No Thyromegaly, No Masses, No LAD, No Bruits Lungs-Clear to Auscultation Bilaterally, No Rales, No Rhonchi, No Wheezing, No Crepitus Chest-No S4, +S1, +S2, No S3, No Murmurs, No Rubs, No Gallops, No Ectopy Abdomen-Soft, Bowel Sounds Present, Non Tender, Non Distended, No Hepatomegaly, No Splenomegaly, No Palpable Masses, No Rebound, No Rigidity, No Guarding Musculoskeletal-Full Range of Motion Bilaterally, No CVAT Extremities-No Cyanosis, No Clubbing, No Edema Nuero-Cranial Nerves II-XII grossly intact, Motor WNL, DTRs WNL, Strength WNL, Non Focal Psych-Normal Mood Principal Diagnosis Accel HTN DM II LIDA Seizures Discharge Exam ROS-No Headache, No Visual Changes, No Nausea, No Vomiting, No Fever, No Chills, No Neck Pain or Stiffness, No Chest Pain, No Palpitations, No SOB, No NICHOLS, No Cough, No Sputum, No Wheezing, No Abdominal Pain, No Diarrhea, No Hematemesis, No Hemoptysis, No Unexpected Weight Loss, No Flank pain, No Melena, No Hematochezia, No Frequency, No Urgency, No Burning, No Hematuria, No Rashes, No Diaphoresis. Appetite is Normal Physical Exam Gen-AAO x 3, NAD, Afebrile Head-NCAT, EOMI, PERRLA, Anicteric Sclera, No Posterior Pharyngeal Erythema Neck-Supple, No JVD, No Thyromegaly, No Masses, No LAD, No Bruits Lungs-Clear to Auscultation Bilaterally, No Rales, No Rhonchi, No Wheezing, No Crepitus Chest-No S4, +S1, +S2, No S3, No Murmurs, No Rubs, No Gallops, No Ectopy Abdomen-Soft, Bowel Sounds Present, Non Tender, Non Distended, No Hepatomegaly, No Splenomegaly, No Palpable Masses, No Rebound, No Rigidity, No Guarding Musculoskeletal-Full Range of Motion Bilaterally, No CVAT Extremities-No Cyanosis, No Clubbing, No Edema Nuero-Cranial Nerves II-XII grossly intact, Motor WNL, DTRs WNL, Strength WNL, Non Focal Psych-Normal Mood Discharge Data Allergies Allergy/AdvReac Type Severity Reaction Status Date / Time No Known Allergies Allergy Unverified 10/22/18 15:54 Consultations 10/22/18 17:34 ED Decision to Admit Stat 10/22/18 19:49 Consult Cardiology Routine Consult Nephrology Routine Consult Neurology Routine Ordered Studies 10/23/18 19:49 US duplex renal artery Stat Negative for ROLO Current Diagnoses Type 2 diabetes mellitus without complications (10/22/18) Hypertensive urgency (10/22/18) Chronic kidney disease, unspecified (10/22/18) Unspecified convulsions (10/22/18) Abnormal levels of other serum enzymes (10/22/18) Allergies No Known Allergies Allergy (Unverified 10/22/18 15:54) Height/Weight/Isolation Height 5 ft 10 in Weight 84.686 kg Chemistry 10/22/18 10/23/18 16:22 06:50 Sodium 145 142 Potassium 3.8 3.7 Chloride 110 H 110 H Carbon Dioxide 27 30 Anion Gap 8.0 2.0 L BUN 27 H 19 H Creatinine 1.46 H 1.05 Glucose 229 H 121 H Urinalysis 10/22/18 17:10 Urine Color Dark Yellow Urine Appearance Clear Urine pH 5.5 Ur Specific [place] 1.026 Urine Protein Negative Urine Glucose (UA) Negative Urine Ketones Trace H Urine Blood Negative Urine Nitrite Negative Urine Bilirubin Negative Hospital Course (1) Hypertensive urgency: (2) Elevated troponin: (3) New onset type 2 diabetes mellitus: (4) Seizure: Cardiology, Renal, and Neuro on case, IVFs stop on DC, Renal US neg ROLO, TSH is normal, T4, Cortisol level normal, AIC 6.1 f/u outpatient, Lamictal level, Fran, EKG, HCTZ added to Lisinopril (), BBlocker increased, Norvasc increased, Still Observation, Patient didn't get this BP overnight, will be happy c a SBP 150-160 for now, DC later today and f/u c Renal, Neuro, Cards Labs reviewed, US neg for ROLO, DC Home and f/u c PCP, Neuro, Cards, and Renal, monitor sugars outpatient ROS-No Headache, No Visual Changes, No Nausea, No Vomiting, No Fever, No Chills, No Neck Pain or Stiffness, No Chest Pain, No Palpitations, No SOB, No NICHOLS, No Cough, No Sputum, No Wheezing, No Abdominal Pain, No Diarrhea, No Hematemesis, No Hemoptysis, No Unexpected Weight Loss, No Flank pain, No Melena, No Hematochezia, No Frequency, No Urgency, No Burning, No Hematuria, No Rashes, No Diaphoresis. Appetite is Normal Physical Exam Gen-AAO x 3, NAD, Afebrile Head-NCAT, EOMI, PERRLA, Anicteric Sclera, No Posterior Pharyngeal Erythema Neck-Supple, No JVD, No Thyromegaly, No Masses, No LAD, No Bruits Lungs-Clear to Auscultation Bilaterally, No Rales, No Rhonchi, No Wheezing, No Crepitus Chest-No S4, +S1, +S2, No S3, No Murmurs, No Rubs, No Gallops, No Ectopy Abdomen-Soft, Bowel Sounds Present, Non Tender, Non Distended, No Hepatomegaly, No Splenomegaly, No Palpable Masses, No Rebound, No Rigidity, No Guarding Musculoskeletal-Full Range of Motion Bilaterally, No CVAT Extremities-No Cyanosis, No Clubbing, No Edema Nuero-Cranial Nerves II-XII grossly intact, Motor WNL, DTRs WNL, Strength WNL, Non Focal Psych-Normal Mood (5) LIDA (acute kidney injury): Total Time Total Time Spent Total Time Spent (In Minutes): 45 mins Total Time Includes: Examination of the Patient, Discharge Planning, Medication Reconciliation and Communication With Other Providers Discharge Plan Discharge Items Patient Disposition: Home - Self-Care Reason For Visit: ACCEL HTN Discharge Diagnosis: Accel HTN DM II LIDA Seizures Condition: Good Discharge Goals: Improve disease control Activity: Resume your previous activity Lifting: None Bathing: No limitations Sexual Activity: When tolerated Exercise/Sports: Gradually increase as tolerated Driving/Machine Use: No limitations Weightbearing: Left weightbearing and Right weightbearing Non-emergency contact: Primary Care Provider, Director Of Residential Services, Car Construction Superintendent and Neurologist Call non-emergency contact if: you have any medication questions Follow-up/Referrals: PCP,TINO [Primary Care Provider] - Everton Lawrence DO [Physician] - (1 week) Pooja Martinez MD [Physician] - (call for appt) Marisela Martinez MD [Physician] - (1 week) Diet: Carb Consistent or DM2 and Heart Healthy Addtl Provider Instructions: f/u on BP and Blood sugars, AIC 6.1 Prescriptions: New isosorbide mononitrate 30 mg Tablet Extended Release 24 Hr 30 mg PO QAM Qty: 30 RF: 0 amlodipine [Norvasc] 5 mg Tablet 10 mg PO QAM Qty: 30 RF: 0 aspirin [Ecotrin Low Strength] 81 mg Tablet,Delayed Release (Dr/Ec) 81 mg PO QAM Qty: 30 RF: 0 lisinopril-hydrochlorothiazide [Zestoretic] 10-12.5 mg Tablet 1 tab PO QAM Qty: 30 RF: 0 metoprolol tartrate 25 mg Tablet 25 mg PO BID Qty: 60 RF: 0 Continued multivitamin Tablet 1 tab PO DAILY RF: 0 lamotrigine 150 mg Tablet 150 mg PO BID RF: 0 Stand-Alone Forms: [facility] Discharge Orders: Discharge Order (Routine); Ordered 10/23/18 Ordered By: Jameel Weinberg Admission Data Admit Date/Time: 10/22/18 18:36 Attending Provider: Jameel Weinberg Admit Provider: Jameel Weinberg Primary Care Provider: PCP,NO Other Providers: Jameel Weinberg ; Papo Godwin ; Marisela Martinez ; Pooja Martinez Service: Telemetry
[2018-10-23 11:12] VITALS: PULSE 57; O2SAT 97
--- NOTE | 2018-10-23 11:22 | Consultation Report ---
DATE OF CONSULTATION: 10/23/2018 INPATIENT CARDIOLOGY CONSULTATION CONSULTATION REQUESTED BY: Dr. Weinberg. REASON FOR CONSULTATION: Accelerated hypertension. HISTORY OF PRESENT ILLNESS: Mr. Villarreal is a very pleasant 63-year-old gentleman who does not have routine medical care. He was last seen by his PCP several years ago and he follows with neurology on a very irregular basis. He presented to his neurologist's office yesterday for followup and was found to be severely hypertensive with a blood pressure of 220/90 and was recommended that he go to the Emergency Department for evaluation. Clinically, the patient states he feels fine. He has no complaints at all and denies any chest pain, shortness of breath, palpitations, lightheadedness, dizziness, syncope, or headaches. Again, he does not remember the last time his blood pressure was checked. He recently retired from work. He has not gained any significant weight. He has been feeling fine. On arrival to the [facility] Emergency Department, he was continued to be hypertensive. He was started on multiple antihypertensives and admitted to telemetry with only slight improvement of blood pressures overnight, but again this a.m., he states he feels well. PAST SURGICAL HISTORY: 1. Colonoscopies. 2. Knee arthroscopy. MEDICAL ILLNESSES: 1. Restless leg syndrome. 2. 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 FAMILY HISTORY: Denies any premature coronary artery disease or sudden cardiac . SOCIAL HISTORY: Denies any alcohol, tobacco or recreational drug use. He is and lives at home with his . He has 2 children who are in good health. 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 REVIEW OF SYSTEMS: As per HPI. All other review of systems reviewed and negative at this time. ALLERGIES: No known drug allergies. MEDICATIONS AN OUTPATIENT: 1. Lamictal 150 mg b.i.d. 2. Multivitamin. PHYSICAL EXAMINATION: VITALS: Temperature 36.4, pulse 59, respiratory rate 12, blood pressure 165/84. GENERAL: Awake, alert, oriented x3 in no acute distress. HEENT: Normocephalic, atraumatic. Pupils equal, round, reactive to light and accommodation. Extraocular muscles intact. Anicteric sclerae. Moist mucous membranes. NECK: No JVD, no bruit. CARDIOVASCULAR: Regular. Positive S4. Normal S1 and S2. No S3. No murmurs or rubs. PULMONARY: Clear to auscultation bilaterally. No rales, rhonchi, or wheezing. ABDOMEN: Bowel sounds x4, soft. No rebound, guarding, tenderness. No organomegaly. EXTREMITIES: No clubbing, cyanosis or edema. +2 pedal pulses bilaterally. SKIN: Warm and dry. TEST RESULTS: A 12-lead EKG upon arrival to the Emergency Department shows normal sinus rhythm at 76 beats per minute, LVH pattern with inverted T waves inferiorly and laterally. No previous studies available for comparison. Renal artery duplex showed no sonographic evidence of renal artery stenosis. LABORATORY STUDIES OF SIGNIFICANCE: Sodium 142, potassium 3.7, BUN 19, creatinine 1, random cortisol 12.7. Rennin aldosterone levels are pending. A 2D echocardiogram is pending. IMPRESSION: 1. Significant accelerated hypertension without symptoms. 2. Seizure history. RECOMMENDATIONS: It was my pleasure to see Mr. Villarreal in consultation today. From a cardiac standpoint, the patient has not seen a doctor in many years. I believe this has been slowly evolving process. So at this point, he has been started on amlodipine, lisinopril/hydrochlorothiazide, Imdur and metoprolol. His blood pressure is now somewhat improving this a.m. after getting his a.m. meds, but should it remain elevated, I would increase lisinopril and hydrochlorothiazide. I will likely discontinue the metoprolol and Imdur going forward. The patient is very hesitant to take medications at home and given his history of lack of medical care, I am concerned about compliance, so we will try streamline medications as much as possible. Otherwise, he will remain on telemetry overnight until his blood pressure consistently controlled. LARY
[2018-10-23 13:33] VITALS: BP 142/70
--- NOTE | 2018-10-23 17:23 | Nephrology Consultation ---
Date of Consultation October 23, 2018 Assessment & Plan (1) Hypertensive urgency: Patient admitted with systolic BP in the 200's. No signs of target organ damage. I suspect it is essential HTN which was not picked up due to lack of regular PCP visits. No renal artery stenosis on duplex. BP coming down nicely on BP meds. When I saw patient this morning systolic was 160. i ordered renin/aldosterone level. Discussed need to limit salt intake. Agree with current regimen. He can follow up with me in [place] [facility] (2) CKD (chronic kidney disease): Patient with CKD 3 likely due to HTN. Cr today of 1.09. Monitor with daily BMP while in house. Cr might increase with lisinopril. Avoid nephrotxins. History of Present Illness Reason for Consultation: Hypertensive urgency Requesting Physician: Jameel Weinberg DO Attending Physician: Jameel Weinberg DO History of Present Illness This is a 63yoM with PMH of seizure disorder, new onset Dm2 who was sent in to the ED on 10/22 from the Neurologist office after finding of elevated BP in the 200 range systolic. Patient never told he had HTN. He has not seen a PCP in 3yrs due to insurance issues. BP was in the 180 -200 range since admission but started to come down this morning to 150's. He is getting Amloc, lopressor, HCTz and lisinopril. He feels well, denies any headache or visual problems. No urinary symptoms. No SOB. He lives in [facility]. No recent seizures Allergies Allergy/AdvReac Type Severity Reaction Status Date / Time No Known Allergies Allergy Unverified 10/22/18 15:54 Home Medications Home Medications Medication Instructions Recorded Confirmed Type lamotrigine 150 mg PO BID 10/22/18 10/22/18 History multivitamin 1 tab PO DAILY 10/22/18 10/22/18 History amlodipine [Norvasc] 10 mg PO QAM #30 tab 10/23/18 Rx aspirin [Ecotrin Low Strength] 81 mg PO QAM #30 tab 10/23/18 Rx isosorbide mononitrate 30 mg PO QAM #30 tab 10/23/18 Rx lisinopril-hydrochlorothiazide 1 tab PO QAM #30 tab 10/23/18 Rx [Zestoretic] metoprolol tartrate 25 mg PO BID #60 tab 10/23/18 Rx Patient History Medical History No significant active problems No significant family history No significant past surgical history Nocturnal seizures Social History Preferred Language: Panamanian Communication Ability: Effective Drum Builder Required: No Beliefs That Will Affect Care: None Current Living Situation: Spouse Other Information That Helps Us Care for You: No Feels Safe at Home: Yes Safety Concerns: Feels Safe At This Time Smoking Status: Never smoker Do You Dip or Chew Tobacco: No Second Hand Exposure: No Tobacco Cessation Education Requested by Patient: No Hx Alcohol Use: No Hx Substance Use: No Review of Systems Review of Systems: All systems reviewed & are unremarkable except as noted in HPI & below Physical Exam Physical Exam: General exam: Appears comfortable, no acute distress HEENT: Pupils are equal and reactive to light Neck: No JVD, neck is supple trachea is midline Respiratory system: Clear breath sounds bilaterally. Gastrointestinal: Abdomen is soft, non distended, non tender, bowel sounds are present CVS: Regular rate and rhythm. No murmurs, rubs or gallops Musculoskeletal: No joint or muscle tenderness Extremities: Non tender, no edema, peripheral pulses are present Neuro: Oriented, no tremors, no focal neurological deficits Skin: No rashes Results & Data Vital Signs (Past 12 Hours) Vital Signs Temp Pulse Resp BP BP Pulse Ox 10/23/18 14:26 36.4 C L 57 L 20 142/70 H 97 10/23/18 13:32 142/70 H 10/23/18 11:10 36.4 C L 57 L 20 160/81 H 97 10/23/18 09:16 36.4 C L 59 L 20 165/84 H 98 10/23/18 06:24 60 182/97 H Laboratory Results Laboratory Results - last 24 hr 10/22/18 10/22/18 10/22/18 16:23 16:23 17:10 WBC RBC Hgb Hct MCV MCH MCHC RDW Std Deviation RDW Coeff of [place]ul[place] Plt Count MPV PT 10.4 INR 1.0 Sodium Potassium Chloride Carbon Dioxide Anion Gap BUN Creatinine Est Cr Clr Drug Dosing Est GFR ( Amer) Est GFR (Non-Af Amer) BUN/Creatinine Ratio Glucose POC Glucose Estimat Average Glucose Hemoglobin A1c Calcium Troponin I Renin Activity Aldosterone Random Cortisol 12.87 Urine Color Dark Yellow Urine Appearance Clear Urine pH 5.5 Ur Specific [place] 1.026 Urine Protein Negative Urine Glucose (UA) Negative Urine Ketones Trace H Urine Blood Negative Urine Nitrite Negative Urine Bilirubin Negative Urine Urobilinogen Negative Ur Leukocyte Esterase Negative 10/22/18 10/23/18 10/23/18 20:12 06:50 06:50 WBC 6.19 RBC 4.12 L Hgb 12.7 L Hct 37.2 L MCV 90.3 MCH 30.8 MCHC 34.1 RDW Std Deviation 40.6 RDW Coeff of Lul[place] 12.3 Plt Count 187 MPV 10.3 PT INR Sodium Potassium Chloride Carbon Dioxide Anion Gap BUN Creatinine Est Cr Clr Drug Dosing Est GFR ( Amer) Est GFR (Non-Af Amer) BUN/Creatinine Ratio Glucose POC Glucose 133 H Estimat Average Glucose 128 Hemoglobin A1c 6.1 H Calcium Troponin I Renin Activity Aldosterone Random Cortisol Urine Color Urine Appearance Urine pH Ur Specific [place] Urine Protein Urine Glucose (UA) Urine Ketones Urine Blood Urine Nitrite Urine Bilirubin Urine Urobilinogen Ur Leukocyte Esterase 10/23/18 10/23/18 10/23/18 06:50 07:04 09:24 WBC RBC Hgb Hct MCV MCH MCHC RDW Std Deviation RDW Coeff of [place] Plt Count MPV PT INR Sodium 142 Potassium 3.7 Chloride 110 H Carbon Dioxide 30 Anion Gap 2.0 L BUN 19 H Creatinine 1.05 Est Cr Clr Drug Dosing 72.4 Est GFR ( Amer) 85.9 Est GFR (Non-Af Amer) 74.1 BUN/Creatinine Ratio 18.5 Glucose 121 H POC Glucose 122 H Estimat Average Glucose Hemoglobin A1c Calcium 8.8 Troponin I 0.129 H* Renin Activity Pending Aldosterone Pending Random Cortisol Urine Color Urine Appearance Urine pH Ur Specific [place] Urine Protein Urine Glucose (UA) Urine Ketones Urine Blood Urine Nitrite Urine Bilirubin Urine Urobilinogen Ur Leukocyte Esterase 10/23/18 10/23/18 11:14 13:09 WBC RBC Hgb Hct MCV MCH MCHC RDW Std Deviation RDW Coeff of [place] Plt Count MPV PT INR Sodium Potassium Chloride Carbon Dioxide Anion Gap BUN Creatinine Est Cr Clr Drug Dosing Est GFR ( Amer) Est GFR (Non-Af Amer) BUN/Creatinine Ratio Glucose POC Glucose 139 H Estimat Average Glucose Hemoglobin A1c Calcium Troponin I 0.101 H* Renin Activity Aldosterone Random Cortisol Urine Color Urine Appearance Urine pH Ur Specific [place] Urine Protein Urine Glucose (UA) Urine Ketones Urine Blood Urine Nitrite Urine Bilirubin Urine Urobilinogen Ur Leukocyte Esterase
[2018-10-27 02:17] LABS: Renin Activity 0.24 ng/mL/h (0.25-5.82)
== END 2018-10-23 15:10 | disposition home or self-care (01) ==
LOC: 2E 15:50 → ED 15:50 → 2E 19:25